=== PATIENT | male | born 1995 | race Two or more races ===

== ENCOUNTER 2018-02-20 01:00 | Emergency (ER) | payer MEDICAID, OTHER ==
[2018-02-20 01:03] VITALS: BP 109/59
--- NOTE | 2018-02-20 01:11 | EDPHY ---
H & P Stated Complaint: cant hear out of R ear, earache Time Seen by Provider: 02/20/18 01:11 HPI/ROS: HPI CHIEF COMPLAINT: Can't hear out of right ear. HISTORY OF PRESENT ILLNESS: 22-year-old male otherwise healthy no significant medical history presents emergency room stating he cannot hear out of his right ear this started around midnight last night. It is now 115 in the morning. Presents emergency room because he cannot hear out of his ear and has some mild discomfort. No fever. No sinus congestion. No trouble swallowing. Main complaint right ear discomfort. Can here. He does use Q-tips. He has had a cerumen impaction past. Past Medical History: Denies significant medical history Past Surgical History: Denies significant surgical history Social History: Denies drugs alcohol tobacco. Family History: Noncontributory ROS REVIEW OF SYSTEMS: 10 Systems were reviewed and negative with the exception of the elements mentioned in the history of present illness. Exam Constitutional triage nursing summary reviewed, vital signs reviewed, awake/ alert. Eyes normal conjunctivae and sclera, EOMI, PERRLA. HENT right ear canal: Unable to visualize TM as there is a large cerumen impaction present. Left ear canal normal. normal inspection, atraumatic, moist mucus membranes, no epistaxis, neck supple/ no meningismus, no raccoon eyes. Respiratory clear to auscultation bilaterally, normal breath sounds, no respiratory distress, no wheezing. Cardiovascular rate normal, regular rhythm, no murmur, no edema, distal pulses normal. Gastrointestinal soft, non-tender, no rebound, no guarding, normal bowel sounds, no distension, no pulsatile mass. Genitourinary no CVA tenderness. Musculoskeletal no midline vertebral tenderness, full range of motion, no calf swelling, no tenderness of extremities, no meningismus, good pulses, neurovascularly intact. Skin pink, warm, & dry, no rash, skin atraumatic. Neurologic awake, alert and oriented x 3, AAOx3, moves all 4 extremities equally, motor intact, sensory intact, CN II-XII intact, normal cerebellar, normal vision, normal speech. Psychiatric normal mood/affect. Heme/Lymph/Immune no lymphadenopathy. Differential Diagnosis: Includes but is not limited to in a particular order cerumen impaction, otitis media, irritation from cerumen on the temp panic membrane TM perforation Medical Decision Making: Plan for this patient will irrigate the patient's right ear out as he has cerumen impaction. Re-evaluation: Source: Patient - Personal History Current Tetanus/Diphtheria Vaccine: Unsure - Medical/Surgical History Hx Asthma: No Hx Chronic Respiratory Disease: No Hx Diabetes: No Hx Cardiac Disease: No Hx Renal Disease: No Hx Cirrhosis: No Hx Alcoholism: No Hx HIV/AIDS: No Hx Splenectomy or Spleen Trauma: No Other PMH: denies - Social History Smoking Status: Former smoker Constitutional: Initial Vital Signs Temperature (C) 36.7 C 02/20/18 01:01 Heart Rate 67 02/20/18 01:01 Respiratory Rate 16 02/20/18 01:01 Blood Pressure 109/59 L 02/20/18 01:01 O2 Sat (%) 98 02/20/18 01:01 O2 Delivery Mode Room Air Allergies/Adverse Reactions: No Known Allergies Allergy (Unverified 02/20/18 01:02) Home Medications: Medication Instructions Recorded NK [No Known Home Meds] 02/20/18 Departure - Departure Disposition: Home, Routine, Self-Care Clinical Impression: Cerumen impaction Instructions: Cerumen Impaction (ED) Additional Instructions: 1. Do not place Q-tip in ear. Referrals: NONE *PRIMARY CARE P,. [Primary Care Provider] - As per Instructions
[2018-02-20] MEDS ORDERED: HYDROGEN PEROXIDE 236 ML BOTTLE TP ONE (01:23)
== END 2018-02-20 02:46 | disposition home or self-care (01) ==
PROC: 3E1B78Z Irrigation of Ear using Irrigating Substance, Via Natural or Artificial Opening (ICD-10-PCS; principal; 2018-02-20)
DX: H91.91 Unspecified hearing loss, right ear (principal); H61.21 Impacted cerumen, right ear